=== PATIENT | male | born 1950 | race Caucasian/White ===

== ENCOUNTER 2021-06-08 20:35 | Emergency (ER) | payer MEDICARE, OTHER, SELFPAY ==
[2021-06-08 20:35] VITALS: BP 91/59; PULSE 104; RESP 18; TEMP 36.5; O2SAT 97; BMI 25.0
--- NOTE | 2021-06-08 21:47 | EX.ED.DYSGE1 ---
HPI History of Present Illness Chief Complaint: Rash Informant: patient Narrative Narrative: Patient notes that he has had a rash for a few days. It is diffuse. He states it itches a small amount but not badly. No trouble breathing. He takes lisinopril and omeprazole but none of these have changed. He also takes [id number] vitamins and omega-3 oils but these have not changed either. No known exposure. He overall feels fine. His sent him in because she was worried about staph infection. He has no fevers. Nothing seems to make his symptoms better or worse. He states overall he feels well. [facility] Medical History Arthritis Former smoker Hypertension Home Medications omeprazole 20 mg PO DAILY 05/10/15 [History Last Taken Unknown] lisinopril 5 mg PO DAILY 06/08/21 [History Last Taken Unknown] prednisone 60 mg PO DAILY #15 tab 06/08/21 [Rx Last Taken Unknown] Allergy/AdvReac Type Severity Reaction Status Date / Time No Known Allergies Allergy Verified 06/08/21 20:37 Social History Smoking Status: Former smoker ROS ROS ED Constitutional Constitutional ED: Denies chills, fever(s) or sweats Eyes Eyes: Denies change in vision ENT ENT ED: Denies rhinorrhea Cardiovascular Cardiovascular: Denies chest pain Respiratory/Chest Respiratory/Chest: Denies cough or dyspnea Gastrointestinal Gastrointestinal: Denies nausea or vomiting Genitourinary Genitourinary ED: Denies hematuria Musculoskeletal Musculoskeletal: Denies arthralgias or myalgias Integumentary Reports rash; Denies abscess or Abrasions Neurologic Neurologic: Denies headache(s) or paresthesias Allergic/Immunologic Allergic/Immunologic ED: Reports urticaria EXAM Physical Exam Const Vital Signs: 06/08/21 20:35 Temperature 97.7 F L Temperature Source Temporal Pulse Rate 104 H Respiratory Rate 18 Blood Pressure 91/59 L Blood Pressure Mean 69 Pulse Ox 97 Oxygen Delivery Method Room Air Positive well nourished and well developed General Appearance ED: well developed and NAD HEENT Reports moist mucous membranes HEENT Narrative: No intraoral lesions or swelling. Voice is normal. Negative for trauma or tenderness Eyes EOMs intact bilaterally Neck Neck Narrative: No stridor. Resp normal respiratory effort and clear to auscultation bilaterally Cardio regular rate and regular rhythm GI normal to inspection, nondistended, normoactive bowel sounds and non-tender Palpation: soft Extremity normal to inspection General Extremety ED: Negative for edema General Extremity: Negative for edema Neuro oriented x3 Sensorium / Orientation: alert Psych mental status grossly normal Skin Skin Narrative: Patient has diffuse raised red well demarcated lesions that medardo with pressure. These seem to be match to left and right. MDM MDM MDM Narrative Medical decision making narrative: Patient does have some hives. These are not going away after few days. We will give him a short course of steroids. I told him to hold the omega-3 oils as these sometimes will cause this. I doubt that is the source but I would like to decrease the chance. When his symptoms totally resolve he can restart them to see if his rash restarts. Discharge Plan Triage Chief Complaint: Rash ED Provider: Chadd Lopez Dx/Rx/DC Orders Clinical Impression: Hives Prescriptions: New prednisone 20 MG tablet 60 mg PO DAILY Qty: 15 RF: 0 No Action omeprazole 20 MG capsule 20 mg PO DAILY RF: 0 lisinopril 5 mg tablet 5 mg PO DAILY RF: 0 Primary Care Provider: Shady Jacobson Referrals: Shady Jacobson MD [Primary Care Provider] - Disposition Disposition: Home, Self Care
[2021-06-08] MEDS: predniSONE 20 MG Tablet 60 MG PO (22:05)
[2021-06-08 22:07] VITALS: BP 106/75; PULSE 90; RESP 15; O2SAT 98
== END 2021-06-08 22:07 | disposition home or self-care (01) ==
PROVIDERS: Emergency Provider Emergency Medicine
DX: L50.9 Urticaria, unspecified (principal); I10 Essential (primary) hypertension; Z87.891 Personal history of nicotine dependence; M19.90 Unspecified osteoarthritis, unspecified site; Z79.52 Long term (current) use of systemic steroids; Z79.899 Other long term (current) drug therapy
CPT/HCPCS: 99283

== ENCOUNTER 2021-06-27 10:25 | Day surgery (SDC) | payer MEDICARE, OTHER, SELFPAY ==
--- NOTE | 2021-06-24 13:33 | EKG12_ITS ---
Test Reason : PRE OP Blood Pressure : / mmHG Vent. Rate : 082 BPM Atrial Rate : 082 BPM P-R Int : 180 ms QRS Dur : 116 ms QT Int : 374 ms P-R-T Axes : 059 -83 034 degrees QTc Int : 436 ms Normal sinus rhythm Left axis deviation Right bundle branch block Abnormal ECG Confirmed by WINIFRED LUNDBERG, JAYLA ([id number]), sports editor NORI TAMAYO ([id number]) on 06/25/2021 10:42:46 AM Referred By: Doug Ro Confirmed By:JAYLA VITALE MD
[2021-06-24 16:39] LABS: Hematocrit 43.9 % (40-54); Hemoglobin 13.8 g/dL (13.0-16.5); Mean Corp Hgb Conc 31.4 g/dL (32-36); Mean Corpuscular Hgb 29.1 pg (27.0-32.0); Mean Corpuscular Volume 92.4 fL (80-94); Mean Platelet Vol. 9.4 fl (6.2-12.0); Platelet Count 306 K/mm3 (150-450); RBC Distribution Width CV 13.2 % (11.6-14.6); RBC Distribution Width SD 45.1 fl (35.1-43.9); Red Blood Count 4.75 M/mm3 (4.6-6.2); White Blood Count 9.2 K/mm3 (4.4-11.0)
[2021-06-27] VITALS (8 sets, daily range): BP systolic 116–130; BP diastolic 68–77; PULSE 61–78; RESP 14–16; TEMP 36.1–36.9; O2SAT 94–99; BMI 23.2
[2021-06-27] MEDS: Lactated Ringers 1,000 ML 100 ML IV (11:00)
--- NOTE | 2021-06-27 11:31 | HP.PCM_ITS ---
History and Physical Date of Admission: 06/27/21 HISTORY AND PHYSICAL ? Bob Rosas 1950 ? ? REFERRING PHYSICIAN: Shady Jacobson, DO ? CHIEF COMPLAINT: Consult (possible right inguinal hernia) ? HPI: Bob is a 70 year old male with a complaint of a bulge and discomfort in his right inguinal region. The patient notes discomfort in this area with lifting and coughing. The symptoms have maintained, over the past 3 weeks. ? The patient notes no symptoms of bowel obstruction and denies nausea or vomiting. The patient was seen by his primary care physician who felt the patient has a hernia. Bob was referred for evaluation and treatment. ? The patient is being seen by me today at the request of Dr. Jacobson for my opinion and advice regarding Right inguinal hernia (primary encounter diagnosis). ? ? PAST MEDICAL HISTORY PAST MEDICAL HISTORY Diagnosis Date ? Benign neoplasm of colon ? ? Esophageal reflux ? ? Essential hypertension ? ? Pure hypercholesterolemia ? ? Seasonal allergies ? ? Snoring ? ? ? PAST SURGICAL HISTORY PAST SURGICAL HISTORY Procedure Laterality Date ? COLONOSCOP W/ OR W/O [facility] SPEC ? 06/03/2015 ? Colonoscopy ? COLONOSCOPY W/BX ? 07/15/2009 ? PAST SURGICAL HISTORY OF ? ? ? biopsy, testicular ? PAST SURGICAL HISTORY OF ? ? ? oral surgery ? REMOVAL OF TONSILS,<12 Y/O ? ? ? Tonsillectomy ? ? ? CURRENT MEDICATIONS Current Outpatient Medications Medication Sig ? lisinopril (ZESTRIL, PRINIVIL) 5 mg tablet Take 5 mg by mouth once daily. ? sildenafil (VIAGRA) 50 mg tablet Take by mouth. ? omeprazole (PRILOSEC) 20 mg capsule Take 20 mg by mouth once daily. ? No current facility-administered medications for this visit. ? ? ALLERGIES: Patient has no known allergies. ? PERSONAL HISTORY: SOCIAL HISTORY Social History ? Tobacco Use ? Smoking status: Former Smoker ? ? Quit date: 08/29/1988 ? ? Years since quittin.8 ? Smokeless tobacco: Never Used Vaping Use ? Vaping Use: Never used Substance Use Topics ? Alcohol use: Yes ? ? Comment: occasional ? Drug use: No ? FAMILY HISTORY: FAMILY HISTORY FAMILY HISTORY Problem Relation Age of Onset ? Colon Cancer Mother ? ? Heart disease Father ? ? Heart Attack Father ? ? Colon Cancer Maternal Grandmother ? ? ? REVIEW OF SYMPTOMS: The review of systems data was entered by the nurse and reviewed by me ? Nursing Notes: Dasia Kc RN 06/19/2021 2:50 PM Signed REVIEW OF SYSTEMS: General: The patient denies fatigue, denies weight loss, denies weight gain, denies feeling hot, and denies feelings of cold. Eyes: The patient denies glaucoma, denies eye injury/surgery, wears glasses or contacts. Ear/Nose/Throat: The patient denies allergies, NOTES hayfever, denies ear infections, and denies bloody noses. Cardiovascular: The patient denies chest pain, denies heart disease, NOTES high blood pressure,denies cardiac stent, denies prior heart attack, denies irregular heart beat, NOTES high cholesterol, denies poor circulation, denies heart failure, other cardiac issues, denies claudication, denies cold feet, denies peripheral arterial stent. Respiratory: The patient denies tuberculosis, denies pneumonia, denies frequent cough, denies pulmonary embolism, denies shortness of breath, and denies coughing up blood. Gastrointestinal: The patient denies difficulty swallowing, NOTES acid reflux, denies ulcers, denies vomiting, denies jaundice/hepatitis, denies gallbladder problems, denies black or tarry stools, NOTES hemorrhoids, denies bleeding from rectum, denies diverticulitis, denies constipation, denies diarrhea, denies loss of stool control, and NOTES hernias. Kidney/Bladder: The patient denies kidney stones, denies urine infections, and denies bloody urine. Skin: The patient denies a history of skin cancer, denies bleeding/changing moles, and denies a history of skin rash. Neurologic: The patient denies a history of epilepsy/convulsions, denies headaches, denies head/spinal injuries, and denies stroke/TIA. Psychiatric: The patient denies psychiatric medications, denies depression, and denies voices, denies substance abuse. Endocrine: The patient denies thyroid disorders, denies diabetes, and denies hormonal problems. Hematologic: The patient denies a history of bruising, denies bleeding, and denies anemia, denies blood clots. Infections: The patient denies a history of measles and mumps, denies rheumatic fever, and denies sexually transmitted diseases. Musculoskeletal: The patient denies back pain/injury, denies back problems, denies sciatica, NOTES knee/foot trouble, NOTES arthritis, or denies gout. ? ? When was patient's last Mammogram screening? N/A ? Last Colonoscopy: 06/03/2015 ? Dasia Kc RN ? PHYSICAL EXAMINATION: ? General: The patient is 70 year old male, well nourished, well hydrated in no acute distress. The patient is oriented to time, place, and person. ? VITALS: Blood pressure 112/70, pulse 112, temperature 36.6 ?C (97.9 ?F), height 175.3 cm (5' 9), weight 74 kg (163 lb 3.2 oz), SpO2 97 %. Body mass index is 24.1 kg/m?. ? HEENT: Normal cephalic, ataumatic, pupils are equally round, sclera are anicteric, mucous membranes are moist, oropharynx is clear. Neck has no masses, asymmetry or lymphadenopathy. Thyroid is unremarkable. ? Respiratory: Clear to auscultation and percussion. Normal respiratory excursion and pattern. ? Cardiac: Examination is regular rate and rhythm. ? Abdominal exam: Soft, nontender, with no palpable masses. No hepato splenomegaly. A small, reducible right inguinal hernia, no left inguinal or umbilical hernias are noted ? Rectal exam: exam deferred ? Extremities: no clubbing, cyanosis or edema. No adenopathy. ? Other: ? ? LABORATORY VALUES: As Noted ? RADIOLOGIC STUDIES: As Noted ? Assessment IMPRESSION: right inguinal hernia ? PLAN: My plan is to perform a laparoscopic right inguinal hernia repair with mesh. The planned surgical procedure was discussed extensively with the patient. The risks, benefits, anticipated outcomes and possible complications were mentioned. [facility] has a chance of recurrence and/or chronic post operative pain. My staff has also explained the procedure in understandable terms and the patient was given the option to take printed material concerning the planned procedure. The patient had the opportunity to ask questions concerning the planned procedure. The patient freely consents to the planned procedure. ? A letter was sent to Dr. Shady Jacobson DO indicating the above finding for this patient. ? Diagnoses: (K40.90) Right inguinal hernia (primary encounter diagnosis) ? Anticipated CPT Code: laparoscopic right inguinal hernia repair with mesh - 10584-487 ? Anticipated Anesthetic: General ? Patient weight: Blood pressure 112/70, pulse 112, temperature 36.6 ?C (97.9 ?F), height 175.3 cm (5' 9), weight 74 kg (163 lb 3.2 oz), SpO2 97 %. BMI: Body mass index is 24.1 kg/m?. ? Planned antibiotic: Ancef 2gm IVPB transcription typist to OR ? SCDs needed - Yes Return to Clinic: The patient is instructed to follow-up with me 1 week post operatively. ? COVID (Procedure Consent) Procedure Criteria ? Procedure Criteria: Yes Elective The surgeon/proceduralist and patient have discussed in detail the risk of exposure to and/or potential harm posed by the COVID-19 virus with having a surgery/procedure at this time versus the risk of? delaying the surgery/procedure. It is not possible to know either the risk of delaying the surgery or procedure or chance of getting an infection with perfect accuracy, but a joint decision was made between the patient and the surgeon/proceduralist ?to proceed at this time with the scheduled surgery/procedure as indicated on the consent form. ? ? Doug Ro III, MD I have re-examined the patient. There are no clinical changes since date of exam.
[2021-06-27] MEDS: Cefazolin 2 GM in 0.9% Normal Saline 100 ML IV (12:16)
[2021-06-27] MEDS: Bupivacaine Mpf 0.5% 30 ML VIAL (13:15)
--- NOTE | 2021-06-27 13:26 | OP.PCM_ITS ---
Problems Associated Problem List Diagnoses (1) Right inguinal hernia: Report of Operation Date of Procedure: 06/27/21 Pre-Operative Diagnosis: Right inguinal hernia Post-Operative Diagnosis: Same Surgery/Procedure Performed:: Robotically assisted laparoscopic right inguinal herniorrhaphy Surgeon: Doug Ro technician submarine cable equipment: Piero Watt Type of Anesthesia: General Anesthesiologist: Tj Quintana Estimated Blood Loss (mL): < 25 cc Description of Procedure: Patient was brought into the operating room. Placed in the supine position. Under excellent general endotracheal ovation the abdomen was sterilely prepped draped in usual fashion. Local was injected above the umbilicus. Dissection was carried down to the fascia. Varies needle was placed inside the abdomen. The abdomen was insufflated to 15 torr. A #8 trocar was placed without difficulty. It was flank by 2 other #8 trochars all under direct visualization. Robot was brought in attached to the trochars without difficulty. Grasper was placed in arm #3 scissors were placed in arm #1. I then went to the console. I scored the peritoneum on the right side. I entered the preperitoneal space. I dissected down to pubic tubercle and then dissected laterally over Yohan's ligament. I then dissected a indirect inguinal hernia free from the cord and vessel structures. I had excellent hemostasis. I did not see any fat in the internal ring. I dissected further laterally. I brought in the medium ProGrip mesh it laid completely flat in the right inguinal floor. I then reperitonealized the area with a 3 OV lock suture. I covered the mesh completely. I retrieve the suture without difficulty. Trochars were removed without difficulty. Skin incisions were brought together with subcuticular stitches of 4-0 Monocryl. Steri-Strips were applied sterile dressings were applied and the patient tolerated the procedure well. Admit VTE Documentation VTE Present on Admission: No VTE Mechan Device Prophylaxis: SCD's VTE Pharm Prophylaxis ordered?: No Reason prophylaxis not ordered:: Treatment Not Indicated
--- NOTE | 2021-06-27 13:30 | EX.PCM.DISCH ---
Discharge Instructions Procedure Hernia Diet Discharge Diet: Light diet - advance as tolerated Activity Discharge Activity: Return to Normal Activity, May Drive (when you are no longer taking narcotic pain medications.) and May Shower (with the bandage in place 1-2 days after surgery.) Lifting Restrictions: 20 pounds for 8 weeks. Additional Activity Instructions:: Climbing stairs is fine, walking is encouraged. Sitting in bed may be uncomfortable. Sitting up using your lateral muscles (sitting up sideways) is usually more comfortable. Do not drive, work heavy equipment of sign legal documents for 24 hours. If your hernia repair was an ingunial repair, you may have scrotal swelling, an ice pack and/or athletic support can provide more comfort. Pain medications may cause nausea, you should typically eat light foods as you take your pain medications. Pain medications may also cause constipation. If you have difficulty with this, discuss with your doctor. Dressing / Incision Call your doctor if your incision/area has: Continuous Slow Oozing, Sudden Increased Bleeding, Increased Pain/ Swelling, Increased Redness and Foul Smelling Discharge Call your doctor if you observe: Fever of 101 or Higher Suture Line Care: Avoid Pulling/Pushing and Avoid Pinching/Bending Additional Dressing/Incision Instructions:: Leave the operative bandage on for 2-3 days. When you remove the bandage, leave the steri-strips on place until your follow up appointment or they fall off. Follow Up Care Please Follow Up With: Poly Estrada PA-C When: Call office to schedule an appointment to be seen in 7 days. Test Results: Test results from this visit will be discussed in further detail at your follow-up appointment, if applicable. Discharge Plan Admission Attending Provider: Doug Ro Primary Care Provider: Care Physician,Kika Primary Discharge Orders/Prescriptions Prescriptions: New oxycodone-acetaminophen [Endocet] 5-325 mg tablet 1 tab PO Q6H PRN (Reason: pain) 5 Days Qty: 20 RF: 0 Continued sildenafil 50 mg tablet 50 mg PO DAILY PRN (Reason: DYSFUNCTION) RF: 0 omeprazole 20 MG capsule 20 mg PO DAILY RF: 0 lisinopril 5 mg tablet 5 mg PO DAILY RF: 0 Referrals / Follow Up: Care Physician,No Primary [Primary Care Provider] - Poly Estrada PA-C [PHYSICIAN EVENT PLANNER] - Disposition Discharge Orders: Discharge Patient (Routine); Ordered 06/27/21 Ordered By: Dr. Doug Ro
== END 2021-06-27 15:58 ==
LOC: SDC 10:26 → AC 10:26
PROVIDERS: Anesthesiology; Referring Provider Surgery; Visit Provider Surgery
PROC: (CPT 49650; principal; 2021-06-27 12:10)
DX: K40.90 Unilateral inguinal hernia, without obstruction or gangrene, not specified as recurrent (principal); E78.00 Pure hypercholesterolemia, unspecified; I10 Essential (primary) hypertension; I45.10 Unspecified right bundle-branch block; K21.9 Gastro-esophageal reflux disease without esophagitis; Z79.899 Other long term (current) drug therapy; Z82.49 Family history of ischemic heart disease and other diseases of the circulatory system; Z86.010 Personal history of colon polyps; Z87.891 Personal history of nicotine dependence
CPT/HCPCS: 00840; 49650; S2900; 36415; 85027; 93005; J7120; J2405